=== PATIENT | female | born 1975 | race Caucasian/White ===

== ENCOUNTER → 2017-07-24 | Outpatient (CLI) | payer OTHER ==
--- NOTE | 2017-07-24 09:34 | RAD ---
Indication: Sinus pressure/drainage. Technique: 3 views of the paranasal sinuses. Comparison: None Findings: There is suggestion of air-fluid level in the bilateral maxillary sinuses. The frontal, ethmoid and sphenoid sinuses are well-aerated. Visualized upper cervical spine is within normal limits. Impression: Suggestion of Air-fluid levels in the bilateral maxillary sinuses likely secondary to acute sinusitis. However, CT of the sinuses recommended for definite confirmation.
[2017-07-24 10:02] LABS: BASO % 1 % (0-3); EOS # 0.1 x10^3/uL (0.0-0.7); EOS % 1 % (0-3); HEMOGLOBIN 13.3 g/dL (12.0-15.5); LYMPH # 2.2 x10^3/uL (1.0-4.8); LYMPH % 40 % (24-48); MEAN CORPUSCULAR HEMOGLOBIN 31 pg (25-35); MEAN CORPUSCULAR HGB CONC 35 g/dL (31-37); MEAN CORPUSCULAR VOLUME 88 fL (79-100); MONO # 0.5 x10^3/uL (0.0-1.1); MONO % 10 % (0-9); NEUT # 2.7 x10^3uL (1.8-7.7); NEUT % 49 % (31-73); PLATELET COUNT 248 x10^3/uL (140-400); RED BLOOD COUNT 4.32 x10^6/uL (3.50-5.40); RED CELL DISTRIBUTION WIDTH 12.6 % (11.5-14.5); WHITE BLOOD COUNT 5.5 x10^3/uL (4.0-11.0)
== END | disposition home or self-care (01) ==
LOC: DXRAD 08:39
PROVIDERS: ATTEND Family Medicine
DX: J34.89 Other specified disorders of nose and nasal sinuses (principal); R79.89 Other specified abnormal findings of blood chemistry
CPT/HCPCS: 36415; 70220; 85025